=== PATIENT | female | born 1965 | race Caucasian/White ===

== ENCOUNTER 2018-11-01 06:37 | Day surgery (SDC) | payer BC ==
[~2018-11-01 06:37] MED LIST: CEFAZOLIN 2 Gram 2 GM/50 ML BAG IVPB ONE; CELECOXIB 100 MG CAPSULE PO ONE; FAMOTIDINE 20MG TABLET PO ONE; MECLIZINE 25 MG TABLET PO ONE; METOCLOPRAMIDE 10 MG TABLET PO ONE; VANCOMYCIN HCL 1,000 MG in DEXTROSE 5 % IN WATER 250 ML IVPB ONE
[2018-11-01] MEDS ORDERED: 0.9 % SODIUM CHLORIDE 10 ML VIAL IVP ONE (06:38)
[2018-11-01] MEDS ORDERED: MIDAZOLAM HCL 2MG/2ML VIAL IV ONE (06:38)
[2018-11-01] MEDS ORDERED: LIDOCAINE 2% MDV (20MG/ML) 20ML VIAL IV ONE (06:38)
[2018-11-01] MEDS ORDERED: KETAMINE HCL 100MG/1ML VIAL INJ ONE (06:38)
[2018-11-01] MEDS ORDERED: DEXAMETHASONE 4 MG/ML 1ML VIAL IVP ONE (06:38)
[2018-11-01] MEDS ORDERED: PROPOFOL 10 MG/ML VIAL IV ONE (06:38)
[2018-11-01] MEDS ORDERED: GLYCOPYRROLATE 0.2 MG/ML ML IV ONE (06:38)
[2018-11-01] MEDS ORDERED: ROPIVACAINE HCL (NAROPIN) /PF 5MG/ML 20ML VIAL IV ONE (06:38)
[2018-11-01] MEDS ORDERED: TRANEXAMIC ACID 1,000 MG/10 ML ML IV ONE ×2 (06:38)
[2018-11-01 07:32] LABS: ABO GROUP A; ANTIBODY SCREEN NEGATIVE (NEGATIVE); RH TYPE POSITIVE
[2018-11-01] MEDS ORDERED: BUPIVACAINE 0.5% W/EPI MPF 30 ML VIAL SQ ONE (09:44)
[2018-11-01] MEDS ORDERED: RINGERS SOLUTION,LACTATED 900 ML IV ONE (11:01)
[2018-11-01] MEDS ORDERED: MAGNESIUM HYDROXIDE 30 ML UDC PO PRN (11:18)
[2018-11-01] MEDS ORDERED: AL HYDROX/MAG HYDROX 30ML UD PO PRN (11:18)
[2018-11-01] MEDS ORDERED: HYDROMORPHONE HCL 2 MG/ML VIAL IM PRN (11:18)
[2018-11-01] MEDS ORDERED: NALOXONE 0.4 MG/1 ML VIAL IVP PRN (11:18)
[2018-11-01] MEDS ORDERED: ACETAMINOPHEN 325 MG TAB PO PRN (11:18)
[2018-11-01] MEDS ORDERED: DIPHENHYDRAMINE HCL 25 MG CAPSULE PO PRN (11:18)
[2018-11-01] MEDS ORDERED: ZOLPIDEM TARTRATE 5 MG TABLET PO PRN (11:18)
[2018-11-01] MEDS ORDERED: BISACODYL 10 MG SUPP RC PRN (11:18)
[2018-11-01] MEDS ORDERED: TRAMADOL HCL 50 MG TABLET PO PRN (11:18)
[2018-11-01] MEDS ORDERED: ACETAMINOPHEN W/ CODEINE 300MG/60MG TABLET PO PRN ×2 (11:18)
[2018-11-01] MEDS ORDERED: ONDANSETRON HCL IV 4 MG/2 ML VIAL IVP PRN (11:18)
[2018-11-01] MEDS ORDERED: KETOROLAC 30 MG/ML VIAL IVP PRN ×2 (11:18)
[2018-11-01] MEDS: POTASSIUM CHLORIDE/D5-0.9%NACL 20 MEQ/1,000 ML BAG IV SCH ×2 (13:01→19:17)
[2018-11-01] MEDS: HYDROCODONE/APAP 10/325 TABLET PO PRN ×3 (13:33→22:22)
--- NOTE | 2018-11-01 15:24 | Rehab Evaluation ---
Patient Information - Patient Information Diagnosis: R knee OA Ordered Treatment: PT Evaluate and Treat Status: Initial Evaluation Surgery: Yes (R TKA) Date of Surgery: 11/01/18 Past Medical/Surgical Hx: PAST MEDICAL/SURGICAL HISTORY Past Surgical History RIGHT KNEE SCOPE RIGHT ACL RECONSTRUCTION LUMPECTOMY RIGHT BREAST 2001 TUBAL LIGATION 2001 C SCOPES PMH - Respiratory Hx Respiratory Disorders No PMH - Cardiovascular Hx Cardiovascular Disorders No Exercise Tolerance Good PMH - Neuro Hx Neurological Disorders No PMH - GI Hx Gastrointestinal Disorders Yes PMH - Hx Genitourinary Disorders No Comment: S/P TUBAL LIGATION 2001 PMH - Endocrine Hx Endocrine Disorders No PMH - Musculoskeletal Hx Musculoskeletal Disorders Yes Hx Arthritis Yes: RIGHT KNEE PMH - Psych Hx Psychiatric Problems No PMH - Hematology/Oncology Hx Hematology/Oncology Yes Disorders Hx Anemia Yes: HX OF Hx Cancer Yes: BREAST RIGHT 2001 NO NODE DISSECTION Hx Chemotherapy No Hx Radiation Therapy Yes Premorbid Status: Detail (The patient was independent with all mobility prior to surgery.) Social History: Detail (The patient lives alone with a 2 story house with 4 steps at the enterance with 2 railings. Between floors a flight of 16 stairs with one railing on the R going up is present, however the patient is going to be staying on the main floor initially. The bathroom is equipped with a tub/ shower combination with no grab bars, a hand held shower, and a standard height toilet. The patient has a shower bench and a 2 wheeled walker.) Precautions: [place], Fall, Other (WBAT on the R LE.) - Time With Patient Total Time Spent With Patient (Min): 30 Treatment Procedures: Detail (Initial Evaluation, gait training) Subjective Information - Subjective Information Per Patient (The patient had no complaints of pain.) Objective Data - Mental Status Patient Orientation: Oriented x3 - Visual Perception Appears within normal limits for therapeutic activities - ROM Not within normal limits (R LE knee AROM was limited s/p surgery. All other LE AROM is WNL.) - Strength/Tone Not within normal limits (The patient's R LE strength was not tested secondary to s/p surgery however was functional. The patient's L LE strength was functional.) - Bed Mobility Independent (The patient was independent with supine to and from sit transfer.) - Transfers Independent (The patient is independent with sit to and from stand transfer and toilet transfer.) - Balance Balance Sitting: Good Balance Standing: Good - Sensation Intact - Gait Detail (The patient ambulated with 2 wheeled walker WBAT on the R LE a distance of 134 feet with supervision for safety.) Therapy Assessment - Therapy Assessment Detail (The patient was independent with bed mobility and transfers and ambulates with supervision for safety only. Feel the patient progress well with mobility.) Problem List - Problem List Physical Therapy Problem List: Detail ( Decreased R knee AROM and R LE strength. ) Goals - Goals Physical Therapy Goals: 1) The patient will be independent with HEP of TKA exercises. 2) The patient will ambulate on stairs with supervision for safety using proper technique. Prognosis - Prognosis Good Plan - Plan Physical Therapy Plan: PT 1-2 sessions for gait training on stairs and instruction in HEP.
[2018-11-01] MEDS: CEFAZOLIN 2 Gram 2 GM/50 ML BAG IVPB SCH (18:06)
[2018-11-01] MEDS: DOCUSATE SODIUM 100 MG CAPSULE PO SCH (22:22)
[2018-11-02] MEDS: CEFAZOLIN 2 Gram 2 GM/50 ML BAG IVPB SCH ×3 (00:47→10:36)
[2018-11-02] MEDS: HYDROCODONE/APAP 10/325 TABLET PO PRN ×2 (05:25→10:12)
[2018-11-02] MEDS: POTASSIUM CHLORIDE/D5-0.9%NACL 20 MEQ/1,000 ML BAG IV SCH ×2 (05:26→12:21)
[2018-11-02 06:57] LABS: HEMATOCRIT 37.1 % (35.0-47.0); HEMOGLOBIN 12.2 gm/dl (11.6-16.0)
[2018-11-02 07:13] LABS: BLOOD UREA NITROGEN 7 mg/dL (6-20); CREATININE 0.6 mg/dL (0.5-0.9); EST GLOMERULAR FILTRATION RATE > 60 mL/min; GLUCOSE,RANDOM 127 mg/dL (74-109)
--- NOTE | 2018-11-02 08:18 | Rehab Evaluation ---
Patient Information - Patient Information Diagnosis: R knee OA Ordered Treatment: OT Evaluate and Treat Status: Initial Evaluation Surgery: Yes (R TKA) Date of Surgery: 11/01/18 Past Medical/Surgical Hx: PAST MEDICAL/SURGICAL HISTORY Past Surgical History RIGHT KNEE SCOPE RIGHT ACL RECONSTRUCTION LUMPECTOMY RIGHT BREAST 2001 TUBAL LIGATION 2001 C SCOPES PMH - Respiratory Hx Respiratory Disorders No PMH - Cardiovascular Hx Cardiovascular Disorders No Exercise Tolerance Good PMH - Neuro Hx Neurological Disorders No PMH - GI Hx Gastrointestinal Disorders Yes PMH - Hx Genitourinary Disorders No Comment: S/P TUBAL LIGATION 2001 PMH - Endocrine Hx Endocrine Disorders No PMH - Musculoskeletal Hx Musculoskeletal Disorders Yes Hx Arthritis Yes: RIGHT KNEE PMH - Psych Hx Psychiatric Problems No PMH - Hematology/Oncology Hx Hematology/Oncology Yes Disorders Hx Anemia Yes: HX OF Hx Cancer Yes: BREAST RIGHT 2001 NO NODE DISSECTION Hx Chemotherapy No Hx Radiation Therapy Yes Premorbid Status: Detail (The patient was independent with all mobility and I/ ADLs prior to surgery and was driving herself to work daily.) Social History: Detail (The patient lives alone in a 2 story house with 4 steps at the enterance with 2 railings. Between floors a flight of 16 stairs with one railing on the R going up is present, however the patient is going to be staying on the main floor initially. The bathroom is equipped with a tub/shower combination with no grab bars, a hand held shower, a shower chair, and a standard height toilet. The patient has a 2 wheeled walker.) Precautions: [place], Fall, Other (WBAT on the R LE.) - Time With Patient Total Time Spent With Patient (Min): 25 ((1) eval) Treatment Procedures: Detail (OT eval: low complexity) Subjective Information - Subjective Information Per Patient (Pt agreeable to OT eval.) Objective Data - Pain Pain Present: No - Mental Status Patient Orientation: Oriented x3 - Visual Perception Appears within normal limits for therapeutic activities - ROM Within normal limits - Strength/Tone Within normal limits - Coordination Appears within normal limits for therapeutic activities - Bed Mobility Independent (supine >< EOB) - Transfers Independent (Supervision and v/c for safe use of walker and TF technique, progressing to Mod I with FWW EOB > std. toilet > bedside chair.) - Balance Balance Sitting: Good Balance Standing: Good - Sensation Intact - Gait Detail - ADL's/IADL's Detail (OT educated Pt on adaptive technique for LB dressing, Pt demos modified independence to don/doff underwear, pants, socks and shoes. Pt demos safety and indep. with toileting. OT educated Pt on modified techniques for safe use of kitchen, bathroom, and laundry, Pt verbalizes understanding.) Therapy Assessment - Therapy Assessment Detail (Pt demos safety and modified independence with I/ADLs. Recommend DC home upon medical stability.) Problem List - Problem List Physical Therapy Problem List: Detail ( Decreased R knee AROM and R LE strength. ) Occupational Therapy Problem List: Detail (No further OT needs identified. DC inpatient OT services.) Goals - Goals Physical Therapy Goals: 1) The patient will be independent with HEP of TKA exercises. 2) The patient will ambulate on stairs with supervision for safety using proper technique. Occupational Therapy Goals: No further OT inpatient needs/goals identified. DC inpatient OT. Prognosis - Prognosis Good Plan - Plan Physical Therapy Plan: PT 1-2 sessions for gait training on stairs and instruction in HEP. Occupational Therapy Plan: No further OT inpatient needs/goals identified. DC inpatient OT. Thank you for this referral.
--- NOTE | 2018-11-02 09:51 | Operative Note ---
DATE OF SURGERY: 11/01/2018 PREOPERATIVE DIAGNOSIS: End-stage arthrosis of the right knee. POSTOPERATIVE DIAGNOSIS: End-stage arthrosis of the right knee. OPERATION: Cemented right total knee arthroplasty using [employer] II components with a size 6 Oxinium femur, a size 5 stem tibia baseplate, an 11 mm lipped highly crosslinked tibial insert, and a 32 mm all plastic patella. Staff Surgeon: Ishaan Felix MD Anesthesia: Spinal. PREPARATION: Chloraprep. INDIVIDUAL CONSIDERATIONS: None. PROCEDURE: The patient was taken to the operating room, placed supine on the operating room table. She had a successful induction of spinal anesthetic. The right lower extremity was prepped and draped in the usual fashion. The patient had a midline approach to the knee. Sharp dissection carried down through skin and subcutaneous tissue. Small veins were coagulated with a Bovie. A medial arthrotomy was performed. The patella was everted and the knee was flexed. She had exposed bone throughout with large marginal osteophytes. Provisional anterior meniscectomies were performed. The capsule was released from the medial proximal tibia. The ACL which had been previously reconstructed and looked virgin was resected, and the capsule was released from the medial proximal tibia. At this point, I went ahead and identified the area where the interference screw was for the tibial side of the ACL. I used an osteotome to chip the bone that had grown over the top of it. I found the screw and then easily removed it. The initial femoral missile control pilot hole was then made freehand. The intramedullary femoral cutting jig was placed. It was cut in 7.0 degrees of valgus and adjusted for rotation and secured with pins for a 10 mm resection. The initial transverse cut was then made. The skin guide was placed in the anterior and posterior missile control pilot holes. It was found that a size 6 would be appropriate but in order to get it to fit, I had to translate it anteriorly 2 mm. If I went to a 7, it would have been overstuffed. The anterior and posterior cuts followed by chamfer cuts were made. Osteophytes removed, and a size 6 trial was placed and found to fit well. The tibia was brought forward, and the remainder of the meniscal remnants removed with a Bovie. The extraarticular tibial cutting jig was placed. It was cut in neutral with a 3-degree AP slope. It was set for a 9 mm resection keyed off the high lateral side and secured with pins. When cutting the tibia, care was taken to preserve the PCL insertion on the tibia. Large medial osteophytes were removed, and I found that a size 5 baseplate trial fit appropriately. With an 11 mm trial and femoral trial, there was excellent motion and stability, ligamentous balance, rotation alignment, patellofemoral tracking were normal. The tri-flange tibial stamp was impacted and these trial components were removed. The patient had a very thick patella and roughly 9 mm of bone was removed with an oscillating saw. I could easily fit a 32 patella. The 3 missile control pilot holes were drilled. Tourniquet was let down briefly to get bleeders posteriorly and then placed back up again. The knee was then thoroughly irrigated out with pulsatile Betadine and saline to remove any visual or palpable debris. Bony surfaces were then dried. A size 5 stem tibia baseplate was cemented into place followed by impaction of an 11 mm lipped tibial insert followed by cementing in the size 6 Oxinium femur followed by cementing in the 32 mm all plastic patella. The implant surfaces were compressed, excess cement was removed, and after the cement had set, there was excellent motion and stability, ligamentous balance, rotation alignment, and patellofemoral tracking were normal. No lateral release was required. Tourniquet was let down. Hemostasis was obtained with a Bovie. Again thorough irrigation. The capsule was then closed with a running #2 quill but prior to this, I infiltrated the skin, subcu, and periosteum with 30 mL of 0.5% Marcaine with epinephrine. Subcu was closed with running 0 quill, skin was closed with rosina. A sterile bulky compressive BIBI-type dressing was applied. The patient tolerated the procedure well. Needle and sponge counts were correct. Estimated blood loss was minimal, and she was taken back to recovery in excellent condition. There were no complications. BAUDILIO
[2018-11-02] MEDS ORDERED: MULTIVITAMINS/MINERALS TABLET PO SCH (10:00)
[2018-11-02] MEDS ORDERED: FERROUS SULFATE 325 MG TAB PO SCH (10:00)
[2018-11-02] MEDS ORDERED: RIVAROXABAN 10 MG TABLET PO SCH (10:00)
[2018-11-02] MEDS ORDERED: CALCIUM CARB/VITAMIN D 500MG/200IU PO SCH (10:00)
[2018-11-02] MEDS: DOCUSATE SODIUM 100 MG CAPSULE PO SCH (10:11)
--- NOTE | 2018-11-02 11:03 | Physical Therapy Tx Note ---
Physical Therapy Tx Note - Treatment Note Tolerated: Good Total Time Spent With Patient: 30 Physical Therapy Tx Note: Detail (The patient had complaints of R knee pain but did not rate her pain using 0-10 pain scale. The patient ambulated independently with 2 wheeled walker a distance of 134 feet x 1 WBAT on the R LE. The patient ambulated on 3 steps and a flight of 7 with folded walker and railing using proper technique with supervision for safety. The patient completed a tub transfer with use of tub bench independently. The patient completed TKA HEP including: heel slides seated, quad sets, gluteal sets, hamstring sets, SLR with use of strap. The patient was unable to complete a SLR without use of strap. The patient has met all inpatient PT goals and is discharged from inpatient PT.) Physical Therapy Problem List: Detail ( Decreased R knee AROM and R LE strength. ) Physical Therapy Goals: 1) The patient will be independent with HEP of TKA exercises (Goal Met). 2) The patient will ambulate on stairs with supervision for safety using proper technique. (Goal Met) Physical Therapy Plan: The patient is discharged from inpatient PT and is to continue with Home PT.
== END 2018-11-02 13:05 | disposition home health service (06) ==
LOC: SUR 06:37 → MEDSURG 11:46 → SUR 11-02 13:05
PROVIDERS: ATTEND Orthopaedic Surgery
DX: M17.11 Unilateral primary osteoarthritis, right knee (principal); Z85.3 Personal history of malignant neoplasm of breast
CPT/HCPCS: 76942; 80048; 85014; 85018; 86850; 86900; 86901; 97110; 97530; J3480; J3490; J7060; J7120

== ENCOUNTER 2018-11-30 13:42 | Day surgery (SDC) | payer BC ==
[2018-11-30] MEDS ORDERED: LIDOCAINE 2% MDV (20MG/ML) 20ML VIAL IV ONE (13:43)
[2018-11-30] MEDS ORDERED: KETOROLAC 30 MG/ML VIAL IVP ONE (13:43)
[2018-11-30] MEDS ORDERED: PROPOFOL 10 MG/ML VIAL IV ONE (13:43)
[2018-11-30] MEDS ORDERED: KETAMINE HCL 100MG/1ML VIAL INJ ONE (13:43)
[2018-11-30] MEDS ORDERED: RINGERS SOLUTION,LACTATED 1,000 ML IV ONE (14:20)
[2018-11-30] MEDS ORDERED: METHYLPREDNISOLONE 40MG/VIAL IM ONE (15:14)
[2018-11-30] MEDS ORDERED: BUPIVACAINE 0.25% W/EPI MPF 30ML VIAL SQ ONE (15:14)
[2018-11-30] MEDS ORDERED: RINGERS SOLUTION,LACTATED 700 ML IV ONE (15:26)
--- NOTE | 2018-12-01 06:01 | Operative Note ---
DATE OF SURGERY: 11/30/2018 PREOPERATIVE DIAGNOSIS: Arthrofibrosis of the right knee. POSTOPERATIVE DIAGNOSIS: Arthrofibrosis of the right knee. OPERATION: 1. Right knee manipulation under anesthesia. 2. Right knee injection. STAFF SURGEON: Ishaan Felix MD ANESTHESIA: General. PREPARATION: Chloraprep. INDIVIDUAL CONSIDERATIONS: None. PROCEDURE: The patient was taken to the operating room and had a successful induction of general anesthetic. I manipulated her knee. She went from full extension. At about 80 degrees I felt an end point but I was easily able to push past this to about 130-140 degrees of flexion. I then prepped her superomedially with ChloraPrep and then sterilely injected 20 mL of 0.5% Marcaine with epinephrine along with 40 mg of Depo-Medrol through a sterile 18-gauge needle. A sterile bulky compressive dressing was applied. She was taken back to recovery in good condition. There were no complications. BAUDILIO
== END 2018-11-30 16:06 | disposition home or self-care (01) ==
LOC: SUR 13:42
PROVIDERS: ATTEND Orthopaedic Surgery
DX: M24.661 Ankylosis, right knee (principal)
CPT/HCPCS: 20610; 27570; 01380; J1885; J3490; J1030; J7120